=== PATIENT | female | born 1990 | race Caucasian/White ===

== ENCOUNTER 2019-05-21 00:40 | Emergency (ER) | payer MEDICAID ==
[~2019-05-21] VITALS: Ht 154.9 cm; Wt 54.0 kg
[~2019-05-21 00:40] MED LIST: NITR100C56 PO; None per pt.; OXYC-302 PO; PREN-2 PO
--- NOTE | 2019-05-21 00:57 | NUR ---
assessment made. chart up for MD to see.
[2019-05-21] MEDS ORDERED: OXYcodone/APAP 5/325MG TABLET ONE (01:13)
--- NOTE | 2019-05-21 01:19 | NUR ---
seen by ERP with orders. patient medicated for pain.
[2019-05-21] MEDS ORDERED: OXYcodone/APAP 5/325MG TABLET PO ONE (01:30)
--- NOTE | 2019-05-21 01:48 | NUR ---
back from X ray.
--- NOTE | 2019-05-21 04:20 | NUR ---
patient's wound cleaned by mold technician. re-evaluation done. patient discharged with prescriptions and instruction. verbalized understanding.
[2019-05-21 04:21] VITALS: BP 132/78
== END 2019-05-21 04:27 | disposition home or self-care (01) ==
LOC: ED 04:24
DX: S02.2XXA Fracture of nasal bones, initial encounter for closed fracture (principal); F17.200 Nicotine dependence, unspecified, uncomplicated; X58.XXXA Exposure to other specified factors, initial encounter; Y93.89 Activity, other specified; Y92.89 Other specified places as the place of occurrence of the external cause; Y99.8 Other external cause status
CPT/HCPCS: 70160; 99283

== ENCOUNTER 2021-01-08 22:16 | Emergency (ER) | payer MEDICAID ==
[~2021-01-08] VITALS: Ht 154.9 cm; Wt 73.0 kg
[~2021-01-08 22:16] MED LIST changes: -OXYC-302 PO; +OXYC1TAB14 PO
--- NOTE | 2021-01-08 22:57 | NUR ---
APPLICATION CHEMIST: NIL X 1 WHEN CALLED FOR ROOM.
--- NOTE | 2021-01-08 23:32 | NUR ---
SPICE MILLER: PT. TO ROOM FROM LOBBY AT THIS TIME.
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
[2021-01-09 02:07] VITALS: BP 112/70
--- NOTE | 2021-01-09 02:08 | NUR ---
break rn: Patient/Caregiver given discharge instructions and they have confirmed that they understand the instructions. Patient ambulatory with steady gait. NAD, all questions answered appropriately, denies additional needs at this time. No personal belongings left in room after discharge.
== END 2021-01-09 02:10 | disposition home or self-care (01) ==
LOC: ED 23:59
DX: S60.022A Contusion of left index finger without damage to nail, initial encounter (principal); F17.200 Nicotine dependence, unspecified, uncomplicated; W22.8XXA Striking against or struck by other objects, initial encounter; Y93.89 Activity, other specified; Y92.410 Unspecified street and highway as the place of occurrence of the external cause; Y99.0 Civilian activity done for income or pay
CPT/HCPCS: 29130; 99283

== ENCOUNTER 2021-01-13 11:46 | Emergency (ER) | payer MEDICAID ==
[~2021-01-13] VITALS: Ht 154.9 cm; Wt 72.8 kg
--- NOTE | 2021-01-13 11:54 | NUR ---
micro lab analyst: ice pack applied
--- NOTE | 2021-01-13 12:55 | NUR ---
SAFETY RELIEF VALVE TECHNICIAN: PT TO ROOM FROM LOBBY
[2021-01-13] MEDS ORDERED: LIDOCAINE-MPF 1%, 5ML ONE (13:35)
[2021-01-13] MEDS ORDERED: LIDOCAINE-MPF 1%, 5ML INFIL ONE (14:00)
--- NOTE | 2021-01-13 15:06 | NUR ---
TUFTING CREELER IN ROOM DOING WOUND CARE
[2021-01-13 15:18] VITALS: BP 116/71
== END 2021-01-13 15:45 | disposition home or self-care (01) ==
LOC: ED 14:10
DX: S61.305A Unspecified open wound of left ring finger with damage to nail, initial encounter (principal); F17.200 Nicotine dependence, unspecified, uncomplicated; Z98.51 Tubal ligation status; X58.XXXA Exposure to other specified factors, initial encounter; Y93.89 Activity, other specified; Y92.89 Other specified places as the place of occurrence of the external cause; Y99.8 Other external cause status
CPT/HCPCS: 29130; 99283

== ENCOUNTER 2021-01-29 13:30 | Emergency (ER) | payer MEDICAID ==
[~2021-01-29] VITALS: Ht 154.9 cm; Wt 73.9 kg
[2021-01-29 13:35] VITALS: BP 118/71
--- NOTE | 2021-01-29 14:35 | NUR ---
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 Awaiting PA exam for return to work papers.
== END 2021-01-29 15:31 | disposition home or self-care (01) ==
LOC: ED 15:25
DX: M79.645 Pain in left finger(s) (principal)
CPT/HCPCS: 99281